=== PATIENT | male | born 1970 | race Caucasian/White ===

== ENCOUNTER 2017-07-03 08:26 | Observation (INO) | payer OTHER ==
[2017-07-03] MEDS ORDERED: Nitroglycerin 2% Ointment Foilpak UD TOP STA (08:52)
[2017-07-03 09:08] LABS: BASO % 0.3 % (0.0-2.0); EOS # 0.1 K/uL (0.0-0.7); EOS % 1.8 % (0.0-4.0); LYMPH # 3.1 K/uL (1.0-4.3); LYMPH % 39.3 % (20.0-40.0); MEAN CELL VOLUME 82.3 fL (80.0-94.0); MEAN CORPUSCULAR HEMOGLOBIN 27.9 pg (27.0-31.0); MEAN CORPUSCULAR HGB CONC 33.9 g/dL (33.0-37.0); MEAN PLATELET VOLUME 7.5 fL (7.2-11.7); MONO # 0.5 K/uL (0.0-0.8); MONO % 6.8 % (0.0-10.0); RED CELL DISTRIBUTION WIDTH 14.1 % (11.5-14.5); WHITE BLOOD COUNT 7.8 K/uL (4.8-10.8)
[2017-07-03 09:16] LABS: INR 1.1
[2017-07-03 09:18] LABS: ALB/GLOB RATIO 1.3 (1.0-2.1); ALKALINE PHOSPHATASE 100 U/L (38-126); ALT/SGPT 41 U/L (21-72); AST/SGOT 25 U/L (17-59); BILIRUBIN,TOTAL 0.8 mg/dL (0.2-1.3); BLOOD UREA NITROGEN 15 mg/dL (9-20); CALCIUM 8.5 mg/dl (8.6-10.4); CHLORIDE 94 mmol/L (98-107); GFR AFRICAN-AMERICAN > 60; GLUCOSE,RANDOM 301 mg/dL (75-110); POTASSIUM 3.5 mmol/L (3.6-5.2); SODIUM 138 mmol/L (132-148); TOTAL PROTEIN 7.4 g/dL (6.3-8.3)
[2017-07-03] MEDS ORDERED: Nitroglycerin 2% Ointment Foilpak UD TOP ONE (09:19)
[2017-07-03 09:21] LABS: CARBON DIOXIDE 29 mmol/L (22-30)
--- NOTE | 2017-07-03 10:36 | RAD ---
PROCEDURE: CHEST RADIOGRAPH, 1 VIEW HISTORY: Chest pain COMPARISON: None available. FINDINGS: LUNGS: Mild venous congestion. Elevated right hemidiaphragm. PLEURA: No pneumothorax or pleural fluid seen. CARDIOVASCULAR: Normal. OSSEOUS STRUCTURES: No significant abnormalities. VISUALIZED UPPER ABDOMEN: Normal. OTHER FINDINGS: None. IMPRESSION: Mild venous congestion. Elevated right hemidiaphragm.
--- NOTE | 2017-07-03 11:31 | C.PDOC ---
History Of Present Illness Patient is a 47 year old male, with PMHx of HTN, presents to ED for evaluation of sudden onset of chest pain while in the bus on his way to his routine clinic appointment. As per patient, his blood pressure was found to be elevated at the clinic, and was referred to the ER for further evaluation. Patient was given Nitropaste. Otherwise, denies any shortness of breath, headache, fever, chills cough, nausea, vomiting, diarrhea, diaphoresis, jaw pain, back pain, or lower extremity pain/swelling. Time Seen by Provider: 07/03/17 08:47 Chief Complaint (Nursing): Chest Pain History Per: Patient History/Exam Limitations: no limitations Onset/Duration Of Symptoms: Hrs Current Symptoms Are (Timing): Still Present Severity: Moderate Quality: "Pain" Associated Symptoms: denies: Nausea, Dyspnea, Diaphoresis, Syncope Modifying Factors: None Exacerbating Factors: None Alleviating Factors: None Recent travel outside of the [place]: No Additional History Per: Patient Past Medical History Reviewed: Historical Data, Nursing Documentation, Vital Signs Vital Signs: Last Vital Signs Temp 98.3 F 07/03/17 08:33 Pulse 79 07/03/17 12:17 Resp 17 07/03/17 12:17 BP 140/96 H 07/03/17 12:17 Pulse Ox 99 07/03/17 12:49 - Medical History PMH: HTN Family History: States: Unknown Family Hx - Social History Hx Alcohol Use: No Hx Substance Use: No - Immunization History Hx Tetanus Toxoid Vaccination: No Hx Influenza Vaccination: No Hx Pneumococcal Vaccination: No Review Of Systems Except As Marked, All Systems Reviewed And Found Negative. Constitutional: Negative for: Fever, Chills Cardiovascular: Positive for: Chest Pain. Negative for: Palpitations, Edema, Light Headedness Respiratory: Negative for: Cough, Shortness of Breath, Wheezing Gastrointestinal: Negative for: Nausea, Vomiting, Abdominal Pain Musculoskeletal: Negative for: Neck Pain Neurological: Negative for: Headache, Dizziness Physical Exam - Physical Exam Appears: Non-toxic, No Acute Distress Skin: Normal Color, Warm, Dry Head: Atraumatic, Normacephalic Eye(s): bilateral: Normal Inspection Oral Mucosa: Moist Neck: Supple Chest: Symmetrical, No Tenderness Cardiovascular: Rhythm Regular, No Murmur Respiratory: Normal Breath Sounds, No Rales, No Rhonchi, No Wheezing Gastrointestinal/Abdominal: Soft, No Tenderness Extremity: Bilateral: Atraumatic, Normal ROM Neurological/Psych: Oriented x3, Normal Speech, Normal Cognition ED Course And Treatment - Laboratory Results Result Diagrams: 07/03/17 09:02 07/03/17 09:02 ECG: Interpreted By Me, Viewed By Me ECG Rhythm: Sinus Rhythm ECG Interpretation: No Acute Changes Rate From EC (bpm) O2 Sat by Pulse Oximetry: 99 (RA) Pulse Ox Interpretation: Normal - Other Rad CXR X-Ray: Viewed By Me, Read By Radiologist Interpretation: FINDINGS: LUNGS: Mild venous congestion. Elevated right hemidiaphragm. PLEURA: No pneumothorax or pleural fluid seen. CARDIOVASCULAR : Normal. OSSEOUS STRUCTURES: No significant abnormalities. VISUALIZED UPPER ABDOMEN: Normal. OTHER FINDINGS: None. IMPRESSION: Mild venous congestion. Elevated right hemidiaphragm. Progress Note: Blood work, CXR, EKG ordered and reviewed. Patient was treated with Nitroglycerin. On reassessment, patient is resting comfortably, reports improvement of chest pain. No shortness of breath. No significant distress at this time. Case was d/w Hospitalist parking control officer who accepted patient to [facility] for observation. Disposition - Disposition Disposition: HOSPITALIZED Disposition Time: 11:44 Condition: FAIR - Clinical Impression Clinical Impression: Chest pain - PA / ADMINISTRATIVE RESOURCES ASSOCIATE / Resident Statement MD/DO has reviewed & agrees with the documentation as recorded. - Scribe Statement The provider has reviewed the documentation as recorded by the Scribe Vanessa Mcdermott All medical record entries made by the Scribe were at my direction and personally dictated by me. I have reviewed the chart and agree that the record accurately reflects my personal performance of the history, physical exam, medical decision making, and the department course for this patient. I have also personally directed, reviewed, and agree with the discharge instructions and disposition. Decision To Admit - Pt Status Changed To: Hospital Disposition Of: Observation - . Bed Request Type: Telemetry Admitting Physician: Gilbert Mcdermott Patient Diagnosis: Chest pain
[2017-07-03] MEDS: Potassium Chloride 20 mEq ER Tab PO SCH (15:31)
--- NOTE | 2017-07-03 15:50 | CP.PCM.HP ---
<Breezy Patten - Last Filed: 07/03/17 16:12> History of Present Illness - History of Present Illness History of Present Illness: PGY-1 H&P [address] Dr[address] Ariadna Mcdermott This is a 47 year old male with PMHx CAD s/p stents x2 in 2014, HTN, HLD who was sent in from the [facility] for evaluation of chest pain with elevated blood pressure. In clinic, left arm pressure measured 160/103 and right arm was 155/100. Patient states that chest pain with associated blurry vision that began at around 7AM this morning while he was on the bus on the way to the hospital. Pain was 4/10 at the time and described as a squeezing sensation on the left side of the chest wall. It has now reduced to 1/10 at the time of encounter. The pain does not radiate. Patient states that he experiences similar episodes of chest pain at least 2 times weekly and notes that this occurs whenever his blood pressure is elevated. Patient notes that his diastolic pressure has been chronically elevated into the 90s. These episodes usually resolve on their own with deep breathing, but today, the pain has remained persistent. The pain will usually decrease as his blood pressure returns to normal. Patient denies dizziness, diaphoresis, palpitations, SOB, cough, n/v/c/d, abdominal pain. PMHx: CAD s/p stents x2 in 2014, HTN, HLD PSHx: PCI in 2015 in [facility] Allergies: NKDA Social: Denies ever smoking, drug use. Occasional drinker, no more than 3 beers a couple of times a month. Family Hx: Dad-CABG at age 62 with at age 68 due to ND. Mother with HTN and DM. Multiple siblings with DM. Meds: ASA 81 mg PO daily, Plavix 75 mg PO once daily, Omeprazole 20 mg PO once daily, Metoprolol 25 mg PO BID, Losartan 50 mg PO BID, Amlodipine 10 mg PO daily , HCTZ 50 mg PO once daily, Lipitor 20 mg PO once daily. D: [facility] Code status: Full Emergency Contact: Yocasta Orestes [phone] Present on Admission - Present on Admission Any Indicators Present on Admission: No Review of Systems - Constitutional Constitutional: absent: Chills, Fever, Headache, Weakness - EENT Eyes: Blurred Vision Ears: absent: Decreased Hearing Nose/Mouth/Throat: absent: Nasal Congestion - Cardiovascular Cardiovascular: Chest Pain. absent: Palpitations - Respiratory Respiratory: absent: Cough, Dyspnea, Wheezing - Gastrointestinal Gastrointestinal: absent: Abdominal Pain, Constipation, Diarrhea, Nausea, Vomiting - Genitourinary Genitourinary: absent: Dysuria - Musculoskeletal Musculoskeletal: absent: Numbness, Tingling - Integumentary Integumentary: absent: Rash - Neurological Neurological: absent: Dizziness, Numbness, Headaches, Tingling, Weakness - Endocrine Endocrine: absent: Palpitations Past Patient History - Infectious Disease Hx of Infectious Diseases: None - Past Social History Smoking Status: Never Smoked - CARDIAC Hx Hypertension: Yes - PSYCHIATRIC Hx Substance Use: No - SURGICAL HISTORY Other/Comment: stent placed - ANESTHESIA Hx Anesthesia: No Meds Allergies/Adverse Reactions: Allergies Allergy/AdvReac Type Severity Reaction Status Date / Time No Known Allergies Allergy Verified 07/03/17 08:35 Physical Exam - Constitutional Appears: No Acute Distress - Head Exam Head Exam: ATRAUMATIC, NORMAL INSPECTION, NORMOCEPHALIC - Eye Exam Eye Exam: EOMI, PERRL - ENT Exam ENT Exam: Mucous Membranes Moist - Respiratory Exam Respiratory Exam: Clear to Auscultation Bilateral. absent: Rales, Rhonchi, Wheezes - Cardiovascular Exam Cardiovascular Exam: REGULAR RHYTHM, +S1, +S2 - GI/Abdominal Exam GI & Abdominal Exam: Normal Bowel Sounds, Soft. absent: Tenderness - Extremities Exam Extremities exam: Positive for: normal capillary refill, pedal pulses present. Negative for: pedal edema, tenderness - Neurological Exam Neurological exam: Alert, CN II-XII Intact, Oriented x3 - Psychiatric Exam Psychiatric exam: Normal Affect, Normal Mood - Skin Skin Exam: Dry, Intact, Normal Color, Warm Results - Vital Signs Recent Vital Signs: Last Vital Signs Temp 98.3 F 07/03/17 15:15 Pulse 88 07/03/17 15:15 Resp 20 07/03/17 15:15 BP 136/97 H 07/03/17 15:15 Pulse Ox 98 07/03/17 15:15 - Labs Result Diagrams: 07/03/17 09:02 07/03/17 09:02 Assessment & Plan - Assessment and Plan (Free Text) Plan: Chest Pain Admit to telemetry observation Repeat ROMIx2 along with EKG at 3PM and 6PM Music Writer Dr. Rodgers consulted, help appreciated TSH, free T4, Mag, Phos Echocardiogram Lipid Panel Coronary Artery Disease s/p stents x2 Metoprolol 25 mg PO BID Plavix 75 mg PO daily ASA 81 mg PO daily Losartan 50 mg PO daily Amlodipine 10 mg PO daily Hypertension HCTZ 50 mg PO daily Metoprolol, Losartan, Amlodipine as above Hyperlipidemia Lipitor 20 mg--> Crestor 10 mg PO qHS F/u Lipid panel Elevated glucose likely secondary to undiagnosed Diabetes Mellitus Hemoglobin A1C On statin and ARB Regular ISS high dose Hypokalemia KCL 40 mEq PO x1 dose F/u Mag, Phos in AM Prophylactic Measure SCDs due to DVT risk score of 1 Omeprazole 20 mg PO daily Heart Healthy Diet Case discussed with Dr. Ariadna Patten PGY-1 <Gilbert Mcdermott - Last Filed: 07/03/17 21:49> Results - Vital Signs Recent Vital Signs: Last Vital Signs Temp 97.7 F 07/03/17 16:15 Pulse 70 07/03/17 16:15 Resp 18 07/03/17 16:15 BP 123/80 07/03/17 16:15 Pulse Ox 96 07/03/17 16:15 - Labs Result Diagrams: 07/03/17 09:02 07/03/17 09:02 Labs: Laboratory Results - last 24 hr 07/03/17 07/03/17 07/03/17 15:26 16:57 21:01 POC Glucose (mg/dL) 229 H 260 H Total Creatine Kinase 278 H CK-MB (Mass) 2.33 Troponin I, Quant < 0.0120 Attending/Attestation - Attestation I have personally seen and examined this patient.: Yes I have fully participated in the care of the patient.: Yes I have reviewed all pertinent clinical information: Yes Notes (Text): 07/03/17 21:48 Patient was seen and examined in the ER with Resident. History, Exam, Assessment and Plan were thoroughly gone over with the resident. Gilbert Mcdermott D.O.
[2017-07-03] MEDS: Metoprolol Succinate 25 mg XL Tab PO SCH (18:31)
[2017-07-03] MEDS: (Novolin R) Insulin Human Regular 100 units/ml vial SC SCH ×2 (18:31→22:55)
[2017-07-04 06:24] LABS: BLOOD UREA NITROGEN 15 mg/dL (9-20); CALCIUM 8.5 mg/dl (8.6-10.4); CARBON DIOXIDE 26 mmol/L (22-30); CHLORIDE 97 mmol/L (98-107); CHOLESTEROL 133 mg/dL (0-199); GFR AFRICAN-AMERICAN > 60; GLUCOSE,RANDOM 193 mg/dL (75-110); MAGNESIUM 1.8 mg/dL (1.6-2.3); PHOSPHOROUS 2.9 mg/dL (2.5-4.5); POTASSIUM 3.8 mmol/L (3.6-5.2); SODIUM 135 mmol/L (132-148)
[2017-07-04 07:23] LABS: THYROID STIMULATING HORMONE 2.21 mIU/L (0.46-4.68)
[2017-07-04 07:51] VITALS: TEMP 98.1
[2017-07-04] MEDS: (Novolin R) Insulin Human Regular 100 units/ml vial SC SCH ×2 (08:04→11:50)
[2017-07-04] MEDS: Potassium Chloride 20 mEq ER Tab PO SCH (09:36)
[2017-07-04] MEDS: Metoprolol Succinate 25 mg XL Tab PO SCH (09:36)
--- NOTE | 2017-07-04 14:35 | CP.PCM.DIS ---
Provider - Provider Date of Admission: 07/03/17 11:34 Attending physician: Gilbert Mcdermott MD Time Spent in preparation of Discharge (in minutes): 31 Diagnosis - Discharge Diagnosis (1) Chest pain Status: Acute (2) History of coronary artery disease Status: Chronic (3) Hypertension Status: Acute (4) Hyperlipidemia Status: Chronic (5) Elevated random blood glucose level Status: Acute (6) Diabetes Status: Acute (7) Hypokalemia Status: Acute (8) Prophylactic measure Status: Acute Hospital Course - Lab Results Lab Results: Most Recent Lab Values WBC 7.8 K/uL (4.8-10.8) 07/03/17 09:02 RBC 5.10 Mil/uL (4.40-5.90) 07/03/17 09:02 Hgb 14.2 g/dL (12.0-18.0) 07/03/17 09:02 Hct 42.0 % (35.0-51.0) 07/03/17 09:02 MCV 82.3 fL (80.0-94.0) 07/03/17 09:02 MCH 27.9 pg (27.0-31.0) 07/03/17 09:02 MCHC 33.9 g/dL (33.0-37.0) 07/03/17 09:02 RDW 14.1 % (11.5-14.5) 07/03/17 09:02 Plt Count 207 K/uL (130-400) 07/03/17 09:02 MPV 7.5 fL (7.2-11.7) 07/03/17 09:02 Neut % (Auto) 51.8 % (50.0-75.0) 07/03/17 09:02 Lymph % (Auto) 39.3 % (20.0-40.0) 07/03/17 09:02 [place] % (Auto) 6.8 % (0.0-10.0) 07/03/17 09:02 Eos % (Auto) 1.8 % (0.0-4.0) 07/03/17 09:02 Baso % (Auto) 0.3 % (0.0-2.0) 07/03/17 09:02 Neut # 4.0 K/uL (1.8-7.0) 07/03/17 09:02 Lymph # 3.1 K/uL (1.0-4.3) 07/03/17 09:02 [place] # 0.5 K/uL (0.0-0.8) 07/03/17 09:02 Eos # 0.1 K/uL (0.0-0.7) 07/03/17 09:02 Baso # 0.0 K/uL (0.0-0.2) 07/03/17 09:02 PT 12.1 SECONDS (9.7-12.2) 07/03/17 09:02 INR 1.1 07/03/17 09:02 APTT 32 SECONDS (21-34) 07/03/17 09:02 Sodium 135 mmol/L (132-148) 07/04/17 06:02 Potassium 3.8 mmol/L (3.6-5.2) 07/04/17 06:02 Chloride 97 mmol/L (98-107) L 07/04/17 06:02 Carbon Dioxide 26 mmol/L (22-30) 07/04/17 06:02 Anion Gap 16 (10-20) 07/04/17 06:02 BUN 15 mg/dL (9-20) 07/04/17 06:02 Creatinine 0.9 MG/DL (0.8-1.5) 07/04/17 06:02 Est GFR ( Amer) > 60 07/04/17 06:02 Est GFR (Non-Af Amer) > 60 07/04/17 06:02 POC Glucose (mg/dL) 202 mg/dL (65-110) H 07/04/17 11:25 Random Glucose 193 mg/dL (75-110) H 07/04/17 06:02 Hemoglobin A1c 9.2 % (4.2-6.5) H 07/04/17 06:02 Calcium 8.5 mg/dl (8.6-10.4) L 07/04/17 06:02 Phosphorus 2.9 mg/dL (2.5-4.5) 07/04/17 06:02 Magnesium 1.8 mg/dL (1.6-2.3) 07/04/17 06:02 Total Bilirubin 0.8 mg/dL (0.2-1.3) 07/03/17 09:02 AST 25 U/L (17-59) 07/03/17 09:02 ALT 41 U/L (21-72) 07/03/17 09:02 Alkaline Phosphatase 100 U/L (38-126) 07/03/17 09:02 Total Creatine Kinase 334 U/L (55-170) H 07/03/17 21:49 CK-MB (Mass) 1.90 ng/mL (0.0-3.38) 07/03/17 21:49 Troponin I < 0.0120 ng/mL (0.00-0.120) 07/03/17 09:02 Troponin I, Quant < 0.0120 ng/mL (0.00-0.120) 07/03/17 21:49 Total Protein 7.4 g/dL (6.3-8.3) 07/03/17 09:02 Albumin 4.1 g/dL (3.5-5.0) 07/03/17 09:02 Globulin 3.3 gm/dL (2.2-3.9) 07/03/17 09:02 Albumin/Globulin Ratio 1.3 (1.0-2.1) 07/03/17 09:02 Triglycerides 199 mg/dL (0-149) H 07/04/17 06:02 Cholesterol 133 mg/dL (0-199) 07/04/17 06:02 LDL Cholesterol Direct 71 mg/dL (0-129) 07/04/17 06:02 HDL Cholesterol 25 mg/dL (30-70) L 07/04/17 06:02 Free T4 1.02 ng/dL (0.78-2.19) 07/04/17 06:02 TSH 3rd Generation 2.21 mIU/L (0.46-4.68) 07/04/17 06:02 - Hospital Course Hospital Course: On admission: "This is a 47 year old male with PMHx CAD s/p stents x2 in 2014, HTN, HLD who was sent in from the [facility] for evaluation of chest pain with elevated blood pressure. In clinic, left arm pressure measured 160/103 and right arm was 155/100. Patient states that chest pain with associated blurry vision that began at around 7AM this morning while he was on the bus on the way to the hospital. Pain was 4/10 at the time and described as a squeezing sensation on the left side of the chest wall. It has now reduced to 1/10 at the time of encounter. The pain does not radiate. Patient states that he experiences similar episodes of chest pain at least 2 times weekly and notes that this occurs whenever his blood pressure is elevated. Patient notes that his diastolic pressure has been chronically elevated into the 90s. These episodes usually resolve on their own with deep breathing, but today, the pain has remained persistent. The pain will usually decrease as his blood pressure returns to normal. Patient denies dizziness, diaphoresis, palpitations, SOB, cough, n/v/c/d, abdominal pain." Hospital Course: Patient admitted for chest pain with elevated blood pressure. Occupational Therapy Supervisor Dr. Rodgers consulted. Cardiac workup including EKG and cardiac enzymes were unremarkable. Chest pain decreased with adequate blood pressure control. Echocardiogram done 07/04/17 which revealed hypertensive heart disease with diastolic dysfunction and mild Tricuspid Regurgitation. LVEF 75%. Thyroid panel including TSH and free T4 unremarkable. Newly diagnosed diabetes on this admission. Episode of elevated random glucose in the 301 and hemoglobin A1C 9.2 Patient was counseled on foods and drinks to avoid. Lipid panel revealed High triglycerides 199 and low HDL 25. LDL was 71. Patient stable and discharged from the hospital, anticipating cardiac catheterization on Friday07/07/[address] Rodgers at 8AM. - Date & Time of H&P Date of H&P: 07/04/17 Time of H&P: 15:00 Discharge Exam - Head Exam Head Exam: ATRAUMATIC, NORMAL INSPECTION, NORMOCEPHALIC - Eye Exam Eye Exam: EOMI, PERRL - ENT Exam ENT Exam: Mucous Membranes Moist - Respiratory Exam Respiratory Exam: Clear to PA & Lateral, NORMAL BREATHING PATTERN. absent: Rales, Rhonchi, Wheezes - Cardiovascular Exam Cardiovascular Exam: REGULAR RHYTHM, +S1, +S2 - GI/Abdominal Exam GI & Abdominal Exam: Normal Bowel Sounds, Soft. absent: Tenderness - Extremities Exam Extremities exam: pedal pulses present - Neurological Exam Neurological exam: Alert, CN II-XII Intact, Oriented x3 - Skin Skin Exam: Dry, Intact, Normal Color, Warm Discharge Plan - Discharge Medications Prescriptions: metFORMIN [glucOPHAGE] 500 mg PO BID #60 tab - Follow Up Plan Condition: FAIR Disposition: HOME/ ROUTINE Instructions: Metformin (By mouth), Chest Pain (DC), Heart Healthy Diet (DC) Additional Instructions: 1) You will be discharged today 07/04/17 and can resume your home medications which you stated that you have enough of: -Aspirin 81 mg by mouth once daily -Plavix 75 mg by mouth once daily -Omeprazole 20 mg once daily -Metoprolol 25 mg by mouth twice daily -Losartan 50 mg by mouth twice daily -Amlodipine 10 mg by mouth once daily -Hydrochlorothiazide (HCTZ) 20 mg by mouth once daily 2) The only additional medication will be for your diabetes: -Metformin 500 mg by mouth twice a day with breakfast and dinner 3) You have been scheduled for cardiac catheterization on Friday07/07/17 at 8: 00 AM in [facility] with Dr. Rodgers. 4) Please do not eat or drink anything past midnight on Friday evening for your procedure on Friday. 5) Arrive half an hour early to your appointment on Friday. 6) Schedule a follow up visit with the [facility] in the basement within 7-10 days of discharge. 7) Take care. Failure to follow these directions could be disastrous for your health. If there are any emergency symptoms, please return to the emergency room. Referrals: [facility] at [facility] [Outside]
[2017-07-04 16:11] VITALS: BP 131/85; PULSE 64; RESP 20; O2SAT 96
--- NOTE | 2017-07-04 16:54 | CARD ---
APPROVED REPORT EXAM: Two-dimensional and M-mode echocardiogram with Doppler and color Doppler. Other Information Quality : GoodRhythm : NSR INDICATION Chest Pain S/p Stent 2014 RISK FACTORS Hyperlipidemia Diabetes M-Mode DIMENSIONS RVDd2.14 (2.1-3.2cm)Left Atrium (MM)2.32 (2.5-4.0cm) IVSd1.33 (0.7-1.1cm)Aortic Root3.91 (2.2-3.7cm) LVDd5.16 (4.0-5.6cm)Aortic Cusp Exc.2.36 (1.5-2.0cm) PWd1.07 (0.7-1.1cm)FS (%) 44 % LVDs2.88 (2.0-3.8cm)LVEF (%)75 (>50%) Mitral Valve MV E Dzywbuoe14.1cm/sMV A Xblthfve34.5cm/sE/A ratio0.5 TDI E/Lateral E'0.0E/Medial E'0.0 Tricuspid Valve TR Peak Mqgbkuhe419et/sTR Peak Gr.[id number] LEFT VENTRICLE The left ventricle is normal size. There is mild concentric left ventricular hypertrophy. Left ventricle systolic function is normal. The Ejection Fraction is >70%. There is normal LV segmental wall motion. Tissue Doppler imaging reveals abnormal left ventricular diastolic dysfunction. RIGHT VENTRICLE The right ventricle is normal size. There is normal right ventricular wall thickness. The right ventricular systolic function is normal. ATRIA The left atrium size is normal. The right atrium size is normal. The interatrial septum is intact with no evidence for an atrial septal defect. AORTIC VALVE The aortic valve is normal in structure. No aortic regurgitation is present. There is no aortic valvular stenosis. There is no aortic valvular vegetation. MITRAL VALVE The mitral valve is normal in structure. There is no evidence of mitral valve prolapse. There is no mitral valve stenosis. There is no mitral valve regurgitation noted. TRICUSPID VALVE The tricuspid valve is normal in structure. There is mild tricuspid regurgitation. Right ventricular systolic pressure is estimated at less than 30 mmHg. There is no pulmonary hypertension. PULMONIC VALVE The pulmonic valve is not well visualized. There is no pulmonic valvular regurgitation. GREAT VESSELS The aortic root is normal in size. PERICARDIAL EFFUSION There is no significant pericardial effusion. <Conclusion> Left ventricle systolic function is normal. The Ejection Fraction is >70%. Hypertensive heart disease Diastolic dysfunction. No aortic regurgitation is present. There is no mitral valve regurgitation noted. There is mild tricuspid regurgitation. There is no pulmonary hypertension. There is no pulmonic valvular regurgitation.
--- NOTE | 2017-07-04 21:04 | CP.PCM.CON ---
History of Present Illness - History of Present Illness History of Present Illness: Reason for consultation: chest pain CC chest pain HPI This is a 47 year old male with PMHx CAD s/p stents x2 in 2015, HTN, HLD who was sent in from the [facility] for evaluation of chest pain with elevated blood pressure. In clinic, left arm pressure measured 160/ 103 and right arm was 155/100. Patient states that chest pain with associated blurry vision that began at around 7AM this morning while he was on the bus on the way to the hospital. Pain was 4/10 at the time and described as a squeezing sensation on the left side of the chest wall. It has now reduced to 1/10 at the time of encounter. The pain does not radiate. Patient states that he experiences similar episodes of chest pain at least 2 times weekly and notes that this occurs whenever his blood pressure is elevated. Patient notes that his diastolic pressure has been chronically elevated into the 90s. These episodes usually resolve on their own with deep breathing, but today, the pain has remained persistent. The pain will usually decrease as his blood pressure returns to normal. Patient denies dizziness, diaphoresis, palpitations, SOB, cough, n/v/c/d, abdominal pain. Review of Systems - Cardiovascular Cardiovascular: Chest Pain - Respiratory Respiratory: Dyspnea Past Patient History - Infectious Disease Hx of Infectious Diseases: None - Past Medical History & Family History Past Medical History?: Yes - Past Social History Smoking Status: Never Smoked - CARDIAC Hx Hypertension: Yes - MUSCULOSKELETAL/RHEUMATOLOGICAL Hx Falls: No - PSYCHIATRIC Hx Substance Use: No - SURGICAL HISTORY Other/Comment: stent placed - ANESTHESIA Hx Anesthesia: Yes Hx Anesthesia Reactions: No Meds Home Medications: Home Medication List Medication Instructions Recorded Confirmed Type metFORMIN [glucOPHAGE] 500 mg PO BID #60 tab 07/04/17 Rx Allergies/Adverse Reactions: Allergies Allergy/AdvReac Type Severity Reaction Status Date / Time No Known Allergies Allergy Verified 07/03/17 08:35 Physical Exam - Constitutional Appears: Non-toxic - Head Exam Head Exam: NORMAL INSPECTION - Eye Exam Eye Exam: Normal appearance - ENT Exam ENT Exam: Mucous Membranes Moist - Neck Exam Neck exam: Positive for: Full Rom - Respiratory Exam Respiratory Exam: Clear to Auscultation Bilateral - GI/Abdominal Exam GI & Abdominal Exam: Normal Bowel Sounds, Soft. absent: Tenderness - Extremities Exam Extremities exam: Positive for: pedal edema, tenderness. Negative for: calf tenderness - Neurological Exam Neurological exam: Alert, Oriented x3 Results - Vital Signs Recent Vital Signs: Last Vital Signs Temp 98.1 F 07/04/17 15:07 Pulse 64 07/04/17 15:07 Resp 20 07/04/17 15:07 BP 131/85 07/04/17 15:07 Pulse Ox 96 07/04/17 15:07 - Labs Result Diagrams: 07/03/17 09:02 07/04/17 06:02 Labs: Laboratory Results - last 24 hr 07/03/17 07/03/17 07/04/17 21:01 21:49 06:02 Sodium 135 Potassium 3.8 Chloride 97 L Carbon Dioxide 26 Anion Gap 16 BUN 15 Creatinine 0.9 Est GFR ( Amer) > 60 Est GFR (Non-Af Amer) > 60 POC Glucose (mg/dL) 260 H Random Glucose 193 H Hemoglobin A1c Calcium 8.5 L Phosphorus 2.9 Magnesium 1.8 Total Creatine Kinase 334 H CK-MB (Mass) 1.90 Troponin I, Quant < 0.0120 Triglycerides 199 H Cholesterol 133 LDL Cholesterol Direct 71 HDL Cholesterol 25 L Free T4 TSH 3rd Generation 2.21 07/04/17 07/04/17 07/04/17 06:02 06:02 06:36 Sodium Potassium Chloride Carbon Dioxide Anion Gap BUN Creatinine Est GFR ( Amer) Est GFR (Non-Af Amer) POC Glucose (mg/dL) 200 H Random Glucose Hemoglobin A1c 9.2 H Calcium Phosphorus Magnesium Total Creatine Kinase CK-MB (Mass) Troponin I, Quant Triglycerides Cholesterol LDL Cholesterol Direct HDL Cholesterol Free T4 1.02 TSH 3rd Generation 07/04/17 07/04/17 11:25 16:33 Sodium Potassium Chloride Carbon Dioxide Anion Gap BUN Creatinine Est GFR ( Amer) Est GFR (Non-Af Amer) POC Glucose (mg/dL) 202 H 171 H Random Glucose Hemoglobin A1c Calcium Phosphorus Magnesium Total Creatine Kinase CK-MB (Mass) Troponin I, Quant Triglycerides Cholesterol LDL Cholesterol Direct HDL Cholesterol Free T4 TSH 3rd Generation Assessment & Plan - Assessment and Plan (Free Text) Assessment: ACS HTN T2dm Lipid disorder Plan: Case discussed w/ resident. Trops x 3. If all negative, may be DC and we will schedule for cath on Friday. Meds: ASA, beta homero, statins, ARB's Echo read in the ECHO LAB. - Date & Time Date: 07/04/17 Time: 08:15
--- NOTE | 2017-07-15 20:00 | CARD ---
APPROVED REPORT EKG Measurement Heart [id number] VA [id number] [id number] <Conclusion> Normal sinus rhythm Normal ECG
--- NOTE | 2017-07-16 14:29 | CARD ---
APPROVED REPORT EKG Measurement Heart [id number] MN 200P50 [id number] <Conclusion> Normal sinus rhythm Normal ECG
--- NOTE | 2017-07-16 14:30 | CARD ---
APPROVED REPORT EKG Measurement Heart [id number] AR [id number] <Conclusion> Normal sinus rhythm Possible Left atrial enlargement Borderline ECG
== END 2017-07-04 17:00 | disposition home or self-care (01) ==
LOC: C.ER 08:26 → C.9E 11:34 → C.6T 14:57
PROVIDERS: ADMIT Family Medicine; ATTEND Family Medicine
DX: R07.9 Chest pain, unspecified (principal); I25.10 Atherosclerotic heart disease of native coronary artery without angina pectoris; I10 Essential (primary) hypertension; E78.5 Hyperlipidemia, unspecified; E11.9 Type 2 diabetes mellitus without complications; E87.6 Hypokalemia; H53.8 Other visual disturbances; R06.00 Dyspnea, unspecified; Z95.5 Presence of coronary angioplasty implant and graft

== ENCOUNTER 2017-07-07 07:29 | Day surgery (SDC) | payer OTHER ==
[2017-07-07] MEDS ORDERED: Midazolam 2 MG/2 ML VIAL ONE (09:50)
[2017-07-07] MEDS ORDERED: Iodixanol 320 MG/ML 100 ML BOTTLE IV ONE ×2 (09:53→10:10)
[2017-07-07] MEDS ORDERED: Sodium Chloride 0.9% 500 ML IV SCH (11:11)
[2017-07-07 12:29] VITALS: O2SAT 100
[2017-07-07 12:32] VITALS: BP 140/76; PULSE 70; RESP 15; TEMP 96.9
--- NOTE | 2017-07-08 08:24 | CARDCATH ---
REFERRING PHYSICIAN: Dr. Gilbert Mcdermott. DATE OF EVALUATION: 07/07/2017 DITCH TENDER: Dr. Rodgers. PROCEDURES: Left heart cath, coronary arteriogram, left ventriculogram. INDICATIONS: ACS. PROCEDURE: After an informed consent, the patient was brought to the cardiac medical laboratory technologist and draped in the usual sterile fashion. Subsequently, the patient received subcutaneous lidocaine to the right femoral area for local anesthesia. The right femoral artery was accessed above the inguinal ligament using a Cook needle. Using Seldinger technique, a 6-inch British sheath was placed. Using the preshaped catheters, angiograms were taken of the coronary arteries and left ventriculogram was done. RESULTS: CORONARY ARTERIOGRAM: The left main artery was free of any disease and bifurcated through LAD and left circumflex artery. The left anterior descending artery revealed 50 % mid LAD stenosis. The left circumflex artery revealed a 30% mid circumflex stenosis. The right coronary artery is a dominant vessel and revealed a 40% proximal PDA lesion and a 60% distal PDA stenosis. LEFT VENTRICULAR GRAM: The LV gram revealed an ejection fraction of 70%. There was no gradient across the aortic valve. There was no mitral regurgitation. IMPRESSION: 1. Non obstructive coronary artery disease. 2. Normal left ventricular systolic function. PLAN: Medical therapy with aspirin and start in some beta blockers. Serena Rodgers MD MTDLorena
--- NOTE | 2017-08-04 13:37 | HP ---
HISTORY OF PRESENT ILLNESS: This is a 47-year-old male with past medical history of CAD, status post multiple stents and hypertension who was sent in from the [facility] for evaluation of chest pain. The patient was hypertensive of course. The patient was admitted and I was called for consultation. The patient's troponins were negative and the patient was discharged to be rescheduled for cardiac cath on Friday. PAST MEDICAL HISTORY: The patient has an occasional CAD with multiple stents and hypertension. FAMILY HISTORY: Dad had CABG at 62 and at the age of 68 due to CO, moderate hypertensive and with history of type 2 diabetes mellitus. The patient has multiple siblings with diabetes mellitus type 2. SOCIAL HISTORY: The patient denies smoking. No drug abuse. The patient drink socially. REVIEW OF SYSTEMS: As noted in the history of present illness recurrent atypical chest discomfort. MEDICATIONS: Low dose aspirin once a day, Plavix 75 mg p.o. once a day, omeprazole 20 mg p.o. once a day, metoprolol 25 mg p.o. b.i.d., Losartan 50 mg p.o. b.i.d., amlodipine 10 mg p.o. once a day, hydrochlorothiazide 50 mg p.o. once daily, and Lipitor 20 mg p.o. once a day. PHYSICAL EXAMINATION: VITAL SIGNS: Stable. HEENT: Normocephalic and atraumatic. NECK: Supple. LUNGS: Clear. HEART: S1 and S2, regular. No murmur and no gallop. ABDOMEN: Benign. EXTREMITIES: No clubbing. No cyanosis. No edema. IMPRESSION: Acute coronary syndrome, hypertension, and depersonalization disorder. PLAN: Cardiac cath. Serena Rodegrs MD
== END 2017-07-07 15:06 | disposition home or self-care (01) ==
LOC: C.CATHLAB 07:29
PROVIDERS: ATTEND Internal Medicine
DX: I25.110 Atherosclerotic heart disease of native coronary artery with unstable angina pectoris (principal)
CPT/HCPCS: 82948; 93452; 94770; J1644; J2250; J3010; J7040; Q9967